=== PATIENT | female | born 1975 | race Caucasian/White ===

== ENCOUNTER 2020-08-15 06:03 | Day surgery (SDC) | payer OTHER ==
[~2020-08-15 06:03] MED LIST: Midazolam 1 MG/ML 2 ML SDV ONE; Sodium Chloride 0.9% 10 ML Syringe FLUSH PRN; fentaNYL 100 MCG/2 ML SDV ONE
[2020-08-15] MEDS ORDERED: Midazolam 1 MG/ML 2 ML SDV IV ONE (06:04)
[2020-08-15] MEDS ORDERED: fentaNYL 100 MCG/2 ML SDV IV ONE (06:04)
[2020-08-15] MEDS ORDERED: Midazolam 1 MG/ML 2 ML SDV ONE (06:13)
[2020-08-15] MEDS ORDERED: fentaNYL 100 MCG/2 ML SDV ONE (06:13)
[2020-08-15] MEDS: Dextrose 5%-0.45% NaCl 1,000 ML IV SCH (06:25)
[2020-08-15] MEDS: fentaNYL 100 MCG/2 ML SDV IV ONE ×2 (07:19→07:20)
[2020-08-15] MEDS: Midazolam 1 MG/ML 2 ML SDV IV ONE ×2 (07:20→07:21)
--- NOTE | 2020-08-15 08:21 | OR ---
DATE: 08/15/2020 PROCEDURES: 1. Esophagogastroduodenoscopy. 2. Multiple pinch biopsies. INSTRUMENT USED: [id number]-HQ190 Olympus videocolonoscope. PREMEDICATIONS: Fentanyl 100 mcg intravenous and Versed 2 mg intravenous. The procedure was done under pulse oximetry, BP recording, and cardiac monitoring. INDICATION: The patient with persistent longstanding cough, unexplained and not responsive to medical measures, supraesophageal reflux disease under consideration. Esophagogastroduodenoscopy is performed for detection of any active erosive lesions, Crisostomo esophagus and/or malignancy also under consideration, and endoscopic hemostasis therapy if needed. DESCRIPTION OF PROCEDURE: The scope was passed with ease. Adequate visualization of the esophagus was made from proximal to distal areas. No upper esophageal lesions were identified. No distal esophageal stricture. No uphill or downhill esophageal varices. No Lydia-Garland tear. No evidence of erosive esophagitis by Cambria criteria. No esophageal polyp or tumor mass was identified. The Z-line was seen at around 39 cm distal to the oral verge, configuration consistent with grade 1 by ZAP classification. No proximal gastric varices were noted. Gastric fundus examination by retroflexion showed no polypoid lesions. No gastric ulcer, malignant mass, or vascular ectasia was identified. The duodenal bulb showed no ulcer. The visualized second part of the duodenum was unremarkable. Multiple pinch biopsies were taken from the gastric antrum and proximal body and sent for PyloriTek test for H pylori and histopathology. Four-quadrant biopsies were taken from the distal and proximal esophagus and sent for any histopathologic evidence of eosinophilic esophagitis. No bleeding was noted from any of the visualized areas at the completion of the examination. Photographs were taken of the duodenal bulb, gastric antrum, fundus, and distal esophagus. IMPRESSION: Normal study. The patient tolerated the procedure well. [facility] /[id number]
== END 2020-08-15 09:35 | disposition home or self-care (01) ==
LOC: DL.ENDO 06:03
PROVIDERS: ATTEND Internal Medicine Gastroenterology
DX: K29.50 Unspecified chronic gastritis without bleeding (principal); K20.90 Esophagitis, unspecified without bleeding; R05 Cough; Z98.890 Other specified postprocedural states
CPT/HCPCS: 43239; 87077; J2250; J3010; J7042

== ENCOUNTER 2021-04-12 18:40 | Emergency (ER) | payer OTHER ==
--- NOTE | 2021-04-12 21:38 | EDM.PDOC ---
ED HPI GENERAL MEDICAL PROBLEM - General Chief Complaint: Skin Complaint Stated Complaint: REACTION TO MEDS, FACE SWALLON Time Seen by Provider: 04/12/21 21:33 Source of Information: Reports: Patient, RN, RN Notes Reviewed History Limitations: Reports: No Limitations - History of Present Illness INITIAL COMMENTS - FREE TEXT/NARRATIVE: Yunier is a 45 y/o female, with a history of MS and breast cancer s/p bilateral mastectomy with allograft reconstruction, who presents to the ED via personal vehicle with complaints of edema to her scalp and face and diffuse rash. She notes her symptoms began five days ago and have progressively worsened in that time. The patient reports she has been examined for her rash by her detonator assembler who is currently treating her with ketoconazole cream, Zyrtec BID, and Diflucan PO. Additionally, she presented to the [facility] ED yesterday as she felt her symptoms, specifically her facial and scalp swelling, were worsening. She was given Benadryl 12.5mg PO and instructed to continue on her PO steroids. 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 She denies fever, shaking chills, headache, vision changes, nausea, vomiting, or diarrhea. She denies throat tightness, tongue swelling, or difficulty breathing. - Related Data Allergies Allergy/AdvReac Type Severity Reaction Status Date / Time No Known Allergies Allergy Verified 05/02/17 13:42 Home Meds: Home Meds Acetaminophen 1,000 mg PO DAILY PRN 08/06/20 [History] Baclofen 10 - 20 mg PO TID PRN 08/06/20 [History] Diphenoxylate HCl/Atropine [Diphenoxylate-Atrop 2.5-0.025] 1 tab PO DAILY 08/06/20 [History] Loratadine [Claritin] 10 mg PO DAILY PRN 08/06/20 [History] Losartan [Cozaar] 25 mg PO DAILY 08/06/20 [History] Prochlorperazine [Compazine] 10 mg PO Q6H PRN 08/06/20 [History] Sennosides/Docusate Sodium [Senna-Docusate Sodium Tablet] 1 tab PO DAILY PRN 08/06/20 [History] hydroCHLOROthiazide [Hydrochlorothiazide] 25 mg PO DAILY 08/06/20 [History] nitrofurantoin macrocrystaL [Nitrofurantoin] 100 mg PO DAILY PRN 08/06/20 [History] ondansetron HCL [Ondansetron HCl] 8 mg PO Q8H PRN 08/06/20 [History] valACYclovir [Valtrex] 1,000 mg PO DAILY PRN 08/06/20 [History] Fluconazole 04/12/21 [History] Ketoconazole [Nizoral 2% Crm] 04/12/21 [History] Past Medical History HEENT History: Reports: None Cardiovascular History: Reports: None Respiratory History: Reports: Other (See Below) Other Respiratory History: CHRONIC COUGH Gastrointestinal History: Reports: Chronic Constipation, GERD Genitourinary History: Reports: UTI, 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 STUMPELL DISEASE. HEREDITARY SPASTIC PARAPLEGIA Neurological History: Reports: None Psychiatric History: Reports: None Endocrine/Metabolic History: Reports: None Hematologic History: Reports: Anemia Immunologic History: Reports: None Oncologic (Cancer) History: Reports: Breast Other Oncologic History: LYNPH NODE TO l) AXILLA Dermatologic History: Reports: Cellulitis - Infectious Disease History Infectious Disease History: Reports: None - Past Surgical History Other HEENT Surgeries/Procedures: WISDOM TEETH EXTRACTION Cardiovascular Surgical History: Reports: None Respiratory Surgical History: Reports: None GI Surgical History: Reports: EGD Female Surgical History: Reports: Breast Reconstruction, Mastectomy Endocrine Surgical History: Reports: None Musculoskeletal Surgical History: Reports: Other (See Below) Other Musculoskeletal Surgeries/Procedures:: CLAVICLE SURGERY Oncologic Surgical History: Reports: Mastectomy Social & Family History - Family History Family Medical History: No Pertinent Family History - Tobacco Use Tobacco Use Status *Q: Never Tobacco User Second Hand Smoke Exposure: No - Caffeine Use Caffeine Use: Reports: Coffee Caffeine Use Comment: 1-5 CUP DAILY - Recreational Drug Use Recreational Drug Use: No ED ROS GENERAL - Review of Systems Review Of Systems: Comprehensive ROS is negative, except as noted in HPI. ED EXAM, SKIN/RASH Exam: See Below Exam Limited By: No Limitations General Appearance: Alert, No Apparent Distress Eye Exam: Bilateral Eye: EOMI, Periorbital Changes (Edema to superior orbit and eyelid), PERRL (3mm) Ears: Normal External Exam, Normal Canal, Hearing Grossly Normal, Normal TMs Nose: Normal Inspection, Normal Mucosa, Nasal Swelling (Edema to bridge of nose) Throat/Mouth: Normal Inspection, Normal Lips, Normal Teeth, Normal Gums, Normal Oropharynx, Normal Voice, No Airway Compromise Head: Atraumatic, Normocephalic, Facial Swelling (To anterior forehead; +2 pitting), Other (+1 pitting edema to posterior scalp). No: Facial Tenderness, Sinus Tenderness Neck: Normal Inspection, Supple, Non-Tender, Full Range of Motion. No: Lymphadenopathy (L), Lymphadenopathy (R) Respiratory/Chest: No Respiratory Distress, Lungs Clear, Normal Breath Sounds, No Accessory Muscle Use, Chest Non-Tender, Other (Clean open wound to left mastectomy/reconstruction site; Dressings in place). No: Crackles, Rales, Rh onchi, Wheezing, Stridor, Retractions Cardiovascular: Normal Peripheral Pulses, Regular Rate, Rhythm, No Gallop, No JVD, No Murmur, No Rub. No: No Edema Peripheral Pulses: 2+: Radial (L), Radial (R) GI/Abdominal: Normal Bowel Sounds, Soft, Non-Tender, No Distention, No Abnormal Bruit, No Mass, Pelvis Stable (Female) Exam: Deferred Rectal (Female) Exam: Deferred Back Exam: Normal Inspection, Full Range of Motion Extremities: Normal Range of Motion, Non-Tender, No Pedal Edema, Normal Capillary Refill, Redness (Fungal rash to right anterior wrist) Neurological: Alert, Oriented, CN II-XII Intact, Normal Cognition, Normal Gait, No Motor/Sensory Deficits Psychiatric: Normal Affect, Normal Mood Skin: Rash (Fungal appearing to right lateral abdmen and chest, bilateral groing, mid-lower back, and right anterior wrist) Location, Skin: Chest, Abdomen, Back, Upper Extremity, Right, Genital Characteristics: Macular, Confluent, Urticarial, Erythematous Associated features: Swelling, Scaling Course - Vital Signs Last Recorded V/S: Last Vital Signs Temp 97.9 F 04/12/21 20:07 Pulse 99 04/12/21 20:07 Resp 16 04/12/21 20:07 BP 160/99 H 04/12/21 20:07 Pulse Ox 99 04/12/21 20:07 - Orders/Labs/Meds Labs: Laboratory Tests 04/12/21 04/12/21 04/12/21 Range/Units 22:13 22:13 22:13 WBC 7.4 (5.0-10.0) 10^3/uL RBC 4.06 L (4.2-5.4) 10^6/uL Hgb 10.0 L (12.0-16.0) g/dL Hct 32.1 L (37.0-47.0) % MCV 79.1 L (80-100) fL MCH 24.6 L (27.0-34.0) pg MCHC 31.2 L (33.0-35.0) g/dL Plt Count 333 (150-450) 10^3/uL Neut % (Auto) 67.3 (42.2-75.2) % Lymph % (Auto) 24.3 (20.5-50.1) % [place] % (Auto) 7.2 (2-8) % Eos % (Auto) 1.1 (1.0-3.0) % Baso % (Auto) 0.1 (0.0-1.0) % Sodium 139 (136-145) mmol/L Potassium 3.3 L (3.5-5.1) mmol/L Chloride 104 (98-107) mmol/L Carbon Dioxide 29 (21-32) mmol/L Anion Gap 9.3 (7-13) mEq/L BUN 10 (7-18) mg/dL Creatinine 0.61 (0.55-1.02) mg/dL Est Cr Clr Drug Dosing 84.54 mL/min Estimated GFR (MDRD) > 60 BUN/Creatinine Ratio 16.4 (No establ ref range) Glucose 92 (70-99) mg/dL Lactic Acid 0.7 (0.4-2.0) mmol/L Calcium 9.3 (8.5-10.1) mg/dL Total Bilirubin 0.6 (0.2-1.0) mg/dL AST 18 (15-37) U/L ALT 31 (14-59) U/L Alkaline Phosphatase 87 (46-116) U/L Total Protein 7.5 (6.4-8.2) g/dL Albumin 3.5 (3.4-5.0) g/dL Globulin 4.0 Albumin/Globulin Ratio 0.9 Meds: Medications Discontinued Medications Generic Name Dose Route Start Last Admin Trade Name Mike PRN Reason Stop Dose Admin Diphenhydramine HCl 50 mg 04/12/21 21:59 04/12/21 22:17 Diphenhydramine 50 Mg/Ml Sdv IVPUSH 04/12/21 22:00 50 mg ONETIME ONE Administration Famotidine 20 mg 04/12/21 22:00 04/12/21 22:22 Famotidine 20 Mg/2 Ml Sdv IVPUSH 04/12/21 22:01 20 mg ONETIME ONE Administration Heparin Sodium (Porcine) 500 units 04/12/21 23:59 04/13/21 00:00 Heparin Sodium 100 Units/Ml 5 Ml Syringe FLUSH 500 units ASDIRECTED PRN Administration Other Fluconazole/Sodium Chloride 50 mls @ 100 mls/hr 04/12/21 23:06 04/12/21 23:22 100 mg/ Premix IV 04/12/21 23:35 100 mls/hr ONETIME ONE Administration Methylprednisolone Sodium Succinate 125 mg 04/12/21 22:00 04/12/21 22:22 Methylprednisolone Sodium Succinate 125 Mg/2 Ml Sdv IVPUSH 04/12/21 22:01 125 mg ONETIME ONE Administration - Re-Assessments/Exams Free Text/Narrative Re-Assessment/Exam: 04/12/21 Solu-Medrol 125mg IVP, Benadryl 50mg IVP, and Pepcid 20mg IVP administered while blood work pending. Diflucan IVPB administered; kidney and liver function appropriate. Findings of examination and lab work reviewed with patient. Patient instructed to follow up with Russian Teacher regarding today's visit. Supportive cares for discussed. Red flag signs and symptoms which would warrant reevaluation reviewed. Patient verbalized understanding and agreement with the plan of care. Departure - Departure Time of Disposition: 00:10 Disposition: Home, Self-Care 01 Condition: Fair Clinical Impression: Fungal rash of trunk, Facial edema, Pruritic rash, History of breast cancer in adulthood, Microcytic hypochromic anemia Allergic reaction Qualifiers: Encounter type: initial encounter Qualified Code(s): T78.40XA - Allergy, unspecified, initial encounter - Discharge Information *PRESCRIPTION DRUG MONITORING PROGRAM REVIEWED*: Not Applicable *COPY OF PRESCRIPTION DRUG MONITORING REPORT IN PATIENT TANNER: Not Applicable Referrals: PCP,None [Primary Care Provider] - Forms: ED Department Discharge Additional Instructions: 1.) Continue with Zyrtec twice a day, Ketoconazole cream, and Diflucan, as previously prescribed. 2.) Follow up with your detonator assembler and oncologist regarding today's visit as you may need to increase your steroid taper dose. 3.) Return to the emergency department with any shortness of breath, throat tightness, or worsening symptoms despite medications. Sepsis Event Note (ED) - Evaluation Sepsis Screening Result: No Definite Risk - Focused Exam Vital Signs: Vital Signs Temp Pulse Resp BP Pulse Ox 04/12/21 20:07 97.9 F 99 16 160/99 H 99
[2021-04-12] MEDS ORDERED: diphenhydrAMINE 50 MG/ML SDV IVPUSH ONE (21:59)
[2021-04-12] MEDS ORDERED: Famotidine 20 MG/2 ML SDV IVPUSH ONE (22:00)
[2021-04-12] MEDS ORDERED: methylPREDNISolone Sodium Succinate 125 MG/2 ML SDV IVPUSH ONE (22:00)
[2021-04-12 22:38] LABS: ANION GAP 9.3 mEq/L (7-13); CHLORIDE,CL 104 mmol/L (98-107); SODIUM,NA 139 mmol/L (136-145)
[2021-04-12] MEDS ORDERED: Fluconazole/Normal Saline 100 MG in Premix Bag 1 BAG IV ONE (23:06)
== END 2021-04-13 00:06 | disposition home or self-care (01) ==
LOC: DL.ED 18:40
DX: T78.40XA Allergy, unspecified, initial encounter (principal); L29.9 Pruritus, unspecified; D50.9 Iron deficiency anemia, unspecified; B48.8 Other specified mycoses; R60.0 Localized edema; Z85.3 Personal history of malignant neoplasm of breast; Z90.13 Acquired absence of bilateral breasts and nipples; Z79.899 Other long term (current) drug therapy
CPT/HCPCS: 36415; 80053; 83605; 85025; 96365; 96375; 99284; J1200; J1450; J1642; J2930; J3490

== ENCOUNTER 2021-11-06 05:58 | Day surgery (SDC) | payer OTHER ==
[~2021-11-06 05:58] MED LIST changes: -Sodium Chloride 0.9% 10 ML Syringe FLUSH PRN
[2021-11-06] MEDS ORDERED: fentaNYL 100 MCG/2 ML SDV IV ONE ×7 (05:59→07:41)
[2021-11-06] MEDS ORDERED: Midazolam 1 MG/ML 2 ML SDV IV ONE ×7 (05:59→07:07)
[2021-11-06] MEDS ORDERED: Sodium Chloride 0.9% 10 ML Syringe FLUSH PRN (06:00)
[2021-11-06] MEDS ORDERED: Dextrose 5%-0.45% NaCl 1,000 ML IV SCH (06:00)
[2021-11-06] MEDS ORDERED: Sodium Chloride 0.9% 10 ML Syringe FLUSH SCH (09:00)
== END 2021-11-06 09:55 | disposition home or self-care (01) ==
LOC: DL.ENDO 05:58
PROVIDERS: ATTEND Internal Medicine Gastroenterology
DX: Z12.11 Encounter for screening for malignant neoplasm of colon (principal); K63.89 Other specified diseases of intestine; G11.4 Hereditary spastic paraplegia; K21.9 Gastro-esophageal reflux disease without esophagitis; Z80.0 Family history of malignant neoplasm of digestive organs; Z98.890 Other specified postprocedural states
CPT/HCPCS: 45378; J1642; J2250; J3010; J7042